=== PATIENT | female | born 1985 ===

== ENCOUNTER 2025-04-07 12:14 | Emergency (ER) | payer OTHER, SELFPAY ==
[2025-04-07 12:17] VITALS: BP 114/65; PULSE 64; RESP 18; TEMP 36.6; O2SAT 98
--- NOTE | 2025-04-07 13:49 | PC.NURSE ---
Pt LWBS, ambulated out of the dept prior to being called for room
== END 2025-04-07 14:01 | disposition left against medical advice (07) ==
LOC: ANHED 14:00
DX: R42 Dizziness and giddiness (principal)
CPT/HCPCS: 99199